=== PATIENT | male | born 1985 | race Hispanic/Latino ===

== ENCOUNTER 2021-11-07 04:49 | Emergency (ER) | payer BC ==
[~2021-11-07] VITALS: Ht 172.7 cm; Wt 93.0 kg
[~2021-11-07 04:49] MED LIST: NO; TRAMADOL HCL50 MG PO
[2021-11-07 05:02] VITALS: BP 133/77
[2021-11-07] MEDS ORDERED: NORVASC5 M1 PO (05:03)
[2021-11-07] MEDS ORDERED: METFORMIN HCL500 M2 PO (05:04)
[2021-11-07] MEDS ORDERED: ESCITALOPRAM OX10 MG PO (05:04)
[2021-11-07] MEDS ORDERED: ATORVASTATIN CA10 MG PO (05:05)
[2021-11-07] MEDS ORDERED: BASAGLAR K100 UNIT/M SC (05:05)
[2021-11-07 05:15] VITALS: BP 124/88
[2021-11-07 05:53] LABS: URINE BILIRUBIN - DIPSTICK NEGATIVE (NEGATIVE); URINE BLOOD DIPSTICK MODERATE (NEGATIVE); URINE COLOR YELLOW; URINE GLUCOSE - DIPSTICK 100 mg/dL (NEGATIVE); URINE KETONE NEGATIVE (NEGATIVE); URINE LEUK ESTERASE NEGATIVE (NEGATIVE); URINE PH 5.5 (4.5-8.0); URINE PROTEIN - DIPSTICK 100 mg/dL (NEG-TRACE); URINE UROBILINOGEN - DIPSTICK 0.2 E.U./dL (0.2)
[2021-11-07 05:57] LABS: URINE NITRITE - DIPSTICK NEGATIVE (Negative)
[2021-11-07 05:58] LABS: HEMATOCRIT 37.2 % (39.0-50.0); HEMOGLOBIN 12.3 g/dl (14.0-18.0); IMMATURE GRANULOCYTES 0.6 % (0.0-5.0); MEAN CELL VOLUME 82.5 fL CALC (80.0-100.0); MEAN CORPUSCULAR HGB 27.3 pG CALC (26.0-32.0); MEAN CORPUSCULAR HGB CONC 33.1 g/dL CAL (32.0-36.0); NEUT# 6.68 thou/uL (1.82-7.42); RED BLOOD COUNT 4.51 mill/uL (4.70-6.10); RED CELL DISTRI WIDTH 13.4 % (11.5-15.5)
[2021-11-07 06:07] LABS: URINE MUCUS FEW hpf (NONE-FEW); URINE SQUAMOUS EPITHELIAL CELL FEW EPI/hpf (0-FEW)
[2021-11-07 06:08] LABS: URINE BACTERIA FEW hpf
[2021-11-07 06:10] LABS: ALBUMIN 3.7 g/dL (3.2-5.0); ALKALINE PHOSPHATASE 118 u/l (38-126); AMYLASE 81 u/l (30-110); ANION GAP 13 (6-22 (CALC)); BILIRUBIN, TOTAL 0.5 mg/dL (0.0-1.4); BUN 16 mg/dL (9-20); BUN/CREATININE RATIO 11 (12-20 (CALC)); CARBON DIOXIDE 26 mmol/l (22-30); CHLORIDE 103 mmol/l (95-108); CREATININE 1.5 mg/dL (0.7-1.3); GFR 52 ML/MIN (>=60 (CALC)); GFR FOR AFR.AMER. > 60 ML/MIN (>=60 (CALC)); LIPASE 94 u/l (23-300); POTASSIUM 4.5 mmol/l (3.5-5.1); SGOT/AST 42 u/l (17-59); SODIUM 137 mmol/l (137-146); TOTAL PROTEIN 7.4 g/dL (6.3-8.2)
[2021-11-07] MEDS ORDERED: CIPROFLOXACN500 MG PO (06:34)
[2021-11-07] MEDS ORDERED: ZOFRAN4 MG/TAB PO (06:35)
[2021-11-07 06:38] VITALS: BP 122/68
[2021-11-07 06:45] VITALS: BP 129/73
[2021-11-07 07:00] VITALS: BP 105/59
== END 2021-11-07 07:13 | disposition home or self-care (01) | DRG 690 ==
LOC: ED 04:49
DX: N39.0 Urinary tract infection, site not specified (principal); E11.9 Type 2 diabetes mellitus without complications; Z79.84 Long term (current) use of oral hypoglycemic drugs; Z79.4 Long term (current) use of insulin; Z20.822 Contact with and (suspected) exposure to COVID-19

== ENCOUNTER 2022-01-27 15:04 | Emergency (ER) | payer BC ==
[~2022-01-27] VITALS: Ht 172.7 cm; Wt 93.1 kg
[~2022-01-27 15:04] MED LIST changes: +ATORVASTATIN CA10 MG PO; +BASAGLAR K100 UNIT/M SC; +CIPROFLOXACN500 MG PO; +ESCITALOPRAM OX10 MG PO; +METFORMIN HCL500 M2 PO; +NORVASC5 M1 PO; +ZOFRAN4 MG/TAB PO
[2022-01-27 17:05] LABS: HEMATOCRIT 34.6 % (39.0-50.0); HEMOGLOBIN 11.5 g/dl (14.0-18.0); IMMATURE GRANULOCYTES 0.9 % (0.0-5.0); MEAN CELL VOLUME 84.4 fL CALC (80.0-100.0); MEAN CORPUSCULAR HGB CONC 33.2 g/dL CAL (32.0-36.0); NEUT# 4.08 thou/uL (1.82-7.42); RED BLOOD COUNT 4.1 mill/uL (4.70-6.10); RED CELL DISTRI WIDTH 14.5 % (11.5-15.5)
[2022-01-27 17:14] LABS: ALBUMIN 3.7 g/dL (3.2-5.0); ALKALINE PHOSPHATASE 102 u/l (38-126); ANION GAP 12 (6-22 (CALC)); BILIRUBIN, TOTAL 0.3 mg/dL (0.0-1.4); BUN 30 mg/dL (9-20); BUN/CREATININE RATIO 21 (12-20 (CALC)); CARBON DIOXIDE 23 mmol/l (22-30); CHLORIDE 107 mmol/l (95-108); CREATININE 1.4 mg/dL (0.7-1.3); GFR FOR AFR.AMER. > 60 ML/MIN (>=60 (CALC)); GFR OTHER RACES 57 ML/MIN (>=60 (CALC)); POTASSIUM 4.8 mmol/l (3.5-5.1); SGOT/AST 31 u/l (17-59); SODIUM 137 mmol/l (137-146); TOTAL PROTEIN 7.1 g/dL (6.3-8.2)
[2022-01-27] MEDS ORDERED: ZESTRIL5 M1 PO (20:05)
[2022-01-27] MEDS ORDERED: MECLIZINE25 MG PO (20:05)
[2022-01-27 20:07] VITALS: BP 147/92
== END 2022-01-27 20:13 | disposition home or self-care (01) | DRG 305 ==
LOC: ED 15:04
PROVIDERS: Family Medicine
DX: I10 Essential (primary) hypertension (principal); E11.9 Type 2 diabetes mellitus without complications; Z79.84 Long term (current) use of oral hypoglycemic drugs; Z20.822 Contact with and (suspected) exposure to COVID-19